=== PATIENT | female | born 1980 | race Hispanic/Latino ===

== ENCOUNTER 2017-08-09 00:44 | Emergency (ER) | payer OTHER ==
[2017-08-09 00:59] VITALS: BP 122/82; PULSE 84; RESP 18; TEMP 98.4; O2SAT 98
--- NOTE | 2017-08-09 01:24 | C.PDOC ---
History Of Present Illness 37 year old female with no significant PMHx presents to the ED with complaints of a sharp left ear pain for three hours. Patient states she took DayQuil with minimal relief of symptoms. Patient notes cold symptoms for the last 3 days. Patient denies fever, headache, dizziness, or chest pain. Time Seen by Provider: 08/09/17 01:02 Chief Complaint (Nursing): ENT Problem History Per: Patient Onset/Duration Of Symptoms: Hrs Current Symptoms Are (Timing): Still Present Anticoagulant/Antiplatlet Use?: No Recent Aspirin Use: No Past Medical History Reviewed: Historical Data, Nursing Documentation, Vital Signs Vital Signs: Last Vital Signs Temp 98.4 F 08/09/17 00:56 Pulse 84 08/09/17 00:56 Resp 18 08/09/17 00:56 BP 122/82 08/09/17 00:56 Pulse Ox 98 08/09/17 03:52 Family History: States: Unknown Family Hx - Social History Hx Alcohol Use: Yes Hx Substance Use: No - Immunization History Hx Tetanus Toxoid Vaccination: No Review Of Systems Constitutional: Negative for: Fever, Chills ENT: Positive for: Ear Pain Cardiovascular: Negative for: Chest Pain Neurological: Negative for: Headache, Dizziness Physical Exam - Physical Exam Appears: Non-toxic, No Acute Distress Skin: Warm, Dry, No Rash Head: Atraumatic, Normacephalic, No Tenderness Eye(s): bilateral: Normal Inspection, PERRL, EOMI Ear(s): Left: TM Erythema, Other (bulding of the left TM, no effusion and no tragal tenderness), Right: Normal Nose: Normal, No Discharge Oral Mucosa: Moist Throat: Normal, No Erythema, No Exudate Neck: Supple Chest: Symmetrical, No Deformity Cardiovascular: Rhythm Regular, No Murmur Respiratory: No Rhonchi, No Wheezing, Other (clear to auscultation bilaterally ) Neurological/Psych: Oriented x3 Gait: Steady ED Course And Treatment O2 Sat by Pulse Oximetry: 98 (RA) Pulse Ox Interpretation: Normal Progress Note: Patient is refusing pain medications, is in no distress, and instructed to follow up with PMD in 1-2days. Disposition Counseled Patient/Family Regarding: Diagnosis, Need For Followup, Rx Given - Disposition Referrals: Non [facility] Provider, [Primary Care Provider] - Disposition: HOME/ ROUTINE Disposition Time: 01:22 Condition: STABLE Additional Instructions: TYlenol or advil for pain Use claritin or zyrtec OTC for nasal spray for nasal congestion Take medication as prescribed Return to ER if worse Prescriptions: Amoxicillin/Clavulanate [Augmentin 500 MG-125 MG] 1 tab PO TID #21 tab Instructions: Otitis Media (ED) Forms: [employer] (Kinyarwanda) - Clinical Impression Clinical Impression: Otitis media, left - PA / [employer] / Resident Statement MD/DO has reviewed & agrees with the documentation as recorded. - Scribe Statement The provider has reviewed the documentation as recorded by the Scribe Michelle Pascal All medical record entries made by the Dilma were at my direction and personally dictated by me. I have reviewed the chart and agree that the record accurately reflects my personal performance of the history, physical exam, medical decision making, and the department course for this patient. I have also personally directed, reviewed, and agree with the discharge instructions and disposition.
== END 2017-08-09 01:55 | disposition home or self-care (01) ==
LOC: C.ER 00:44 → SUPCPDRO 00:44 → C.ER 01:55
DX: H66.92 Otitis media, unspecified, left ear (principal)